=== PATIENT | male | born 2005 | race Caucasian/White ===

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

== ENCOUNTER 2024-11-20 16:09 | Emergency (ER) | payer SELFPAY ==
[2024-11-20] MEDS: Ibuprofen 400 MG Tab PO ONE (17:27)
== END 2024-11-20 18:07 | disposition home or self-care (01) ==
LOC: JP.ED 16:09
DX: S42.002A Fracture of unspecified part of left clavicle, initial encounter for closed fracture (principal); V86.56XA Driver of dirt bike or motor/cross bike injured in nontraffic accident, initial encounter
CPT/HCPCS: 71045; 73000; 99284; A9270

== ENCOUNTER 2024-12-14 08:58 | Day surgery (SDC) | payer SELFPAY ==
[2024-12-14] MEDS ORDERED: Propofol 200 MG/20 ML SDV ONE (09:00)
[2024-12-14] MEDS ORDERED: Dexamethasone 4 MG/ML SDV ONE (09:00)
[2024-12-14] MEDS ORDERED: Ondansetron 4 MG/2 ML SDV ONE (09:00)
[2024-12-14] MEDS ORDERED: Midazolam 1 MG/ML 2 ML SDV ONE (09:00)
[2024-12-14] MEDS ORDERED: fentaNYL 250 MCG/5 ML SDV ONE ×2 (09:02→10:44)
[2024-12-14 09:26] LABS: MEAN CORPUSCULAR HEMOGLOBIN 30.2 pg (31.6-35.5); MEAN CORPUSCULAR HGB CONC 33.3 g/dL (31.6-35.5); MEAN CORPUSCULAR VOLUME 90.5 fL (81.4-99.0); RED BLOOD CELL COUNT 4.97 M/uL (4.14-5.76); WHITE BLOOD CELL COUNT,WBC 5.9 K/uL (3.2-11.0)
[2024-12-14] MEDS: Lactated Ringers 1,000 ML IV SCH (09:37)
[2024-12-14 09:43] LABS: ANION GAP 8.9 mmol/L (5.0-14.0); CALCIUM 9.7 mg/dL (8.5-10.1); CREATININE 1.1 mg/dL (0.8-1.3); EST CRCL DRUG DOSING (CG) 124.55 mL/min; POTASSIUM,K 3.8 mmol/L (3.6-5.2)
[2024-12-14] MEDS: Nozin Nasal Sanitizer NASBOTH ONE (09:45)
[2024-12-14] MEDS: ceFAZolin 2 GM in Premix Bag 1 BAG IV ONE (10:25)
[2024-12-14] MEDS: Bupivacaine 0.5% 50 ML MDV ONE (10:57)
[2024-12-14] MEDS: Acetaminophen/HYDROcodone 325-5 MG Tab PO PRN (13:17)
== END 2024-12-14 14:30 | disposition home or self-care (01) ==
LOC: JP.SDS 08:58
PROVIDERS: ATTEND Specialist
DX: S42.022A Displaced fracture of shaft of left clavicle, initial encounter for closed fracture (principal); F17.200 Nicotine dependence, unspecified, uncomplicated; X58.XXXA Exposure to other specified factors, initial encounter
CPT/HCPCS: 00450; 23515; 36415; 80048; 85027; A9270; C1713; C1776; J0665; J0690; J1100; J2250; J2405; J2704; J3010; J7120